=== PATIENT | female | born 1960 | race Caucasian/White ===

== ENCOUNTER 2023-01-10 10:41 | Emergency (ER) | payer SELFPAY ==
[~2023-01-10] VITALS: Ht 160 cm; Wt 72.7 kg
[2023-01-10 10:44] VITALS: BP 165/82; PULSE 83; RESP 20; TEMP 98.4; O2SAT 96
[2023-01-10] MEDS ORDERED: dexamethasone sod phosphate 10mg/ml inj IM STA (12:30)
[2023-01-10] MEDS ORDERED: CEFD300C3 PO (12:35)
== END 2023-01-10 13:00 | disposition home or self-care (01) ==
LOC: ER 10:42
DX: J40 Bronchitis, not specified as acute or chronic (principal)
CPT/HCPCS: 96372; 99283; J1100